=== PATIENT | female | born 1955 | race Caucasian/White ===

== ENCOUNTER → 2017-04-07 | Outpatient (CLI) | payer BC ==
[~2017-04-07] MED LIST: HYDR-2997 PO; LEVO50TA PO; LISI1TAB8 PO; PANT40TA2 PO; RLX60T; SUCR1TAB36 PO; VALS1TAB48
--- NOTE | 2017-04-08 11:39 | Diagnostic Imaging Report ---
EXAMINATION: Bilateral screening mammogram with a Computer Aided Detection (CAD) system. INDICATION: Screening. PERSONAL HISTORY: No current complaints stated on the questionnaire. COMPARISON: 07/19/2013. FINDINGS: The breasts are composed of heterogeneously dense parenchyma which may decrease mammographic sensitivity. There are scattered benign-appearing calcifications. Allowing for technique and positional differences, no suspicious change is seen. IMPRESSION: Dense breasts with no definite change. ACR BI-RADS Category 2: Benign findings. Result letter will be mailed to the patient. Note: At least 10% of breast cancer is not imaged by mammography. Dictated by: Dictated on workstation # [id number]
== END ==
LOC: RAD 07:03
PROVIDERS: ATTEND Family Medicine
DX: Z12.31 Encounter for screening mammogram for malignant neoplasm of breast (principal)
CPT/HCPCS: 77067

== ENCOUNTER 2017-05-04 15:25 | Day surgery (SDC) | payer BC ==
[~2017-05-04] VITALS: Ht 165.1 cm; Wt 71.5 kg
[2017-05-04 15:25] VITALS: BP 143/89
--- NOTE | 2017-05-04 15:40 | Progress Note-Pre Operative ---
Pre-Operative Progress Note H&P Reviewed The H&P was reviewed, patient examined and no changes noted. Date Seen by Provider: May 04, 2017 Time Seen by Provider: 14:55 Date H&P Reviewed: May 04, 2017 Time H&P Reviewed: 15:39 Pre-Operative Diagnosis: Abscess of left axilla DARA ARTEAGA MD May 04, 2017 3:40 pm
[2017-05-04] MEDS ORDERED: CATHETER FLUSH 10 ML SYR IV PRN (16:15)
[2017-05-04] MEDS ORDERED: ceFAZolin 1 GM/NS 50 ML IVPB IV NR ×2 (16:15)
[2017-05-04] MEDS: LACTATED RINGERS 1,000 ML IV SCH ×2 (16:28→17:21)
[2017-05-04] MEDS ORDERED: DOCU100C37 PO (16:52)
[2017-05-04] MEDS ORDERED: PANT40TA3 PO (16:52)
[2017-05-04] MEDS ORDERED: GLUC-219 PO (16:52)
[2017-05-04] MEDS ORDERED: OMEG-109 PO (16:52)
[2017-05-04] MEDS ORDERED: FERR-74 PO (16:52)
[2017-05-04] MEDS ORDERED: CALC-857 PO (16:52)
[2017-05-04] MEDS ORDERED: LEVO50TA6 PO (16:52)
[2017-05-04] MEDS ORDERED: VITA1TAB17 PO (16:52)
[2017-05-04] MEDS ORDERED: MIDAZOLAM 2 MG/2 ML (VERSED) VIAL ONE (17:36)
[2017-05-04] MEDS ORDERED: LACTATED RINGERS 1,000 ML IV ONE (17:36)
[2017-05-04] MEDS ORDERED: SEVOFLURANE (ULTANE) 15 ML INHAL SOLN ONE ×3 (17:36→18:25)
[2017-05-04] MEDS ORDERED: proPOfol 200 MG/20 ML (DIPRIVAN) VIAL IV ONE (17:36)
[2017-05-04] MEDS ORDERED: LIDOCAINE PF 2% 5 ML (XYLOCAINE) VIAL ONE (17:36)
[2017-05-04] MEDS ORDERED: ONDANSETRON 4 MG/2 ML (SDV) Z0FRAN ONE (17:36)
[2017-05-04] MEDS ORDERED: fentaNYL INJECTION 100 MCG/2 ML AMP ONE (17:37)
[2017-05-04] MEDS ORDERED: DEXAMETHASONE PF 10 MG/ML (DECADRON) VIAL ONE (17:58)
--- NOTE | 2017-05-04 18:10 | Operative Report ---
Operative Report Date of Procedure/Surgery May 04, 2017 Surgeon (s) DARA ARTEAGA MD Business Intelligence Engineer (s): Not applicable Post-Operative Diagnosis Same Procedure Performed Incision and drainage of abscessleft axilla Description of Procedure Anesthesia Type: General Estimated blood loss (mL): Minimal Specimen(s) collected/removed pus for culture Description of the Procedure Indication for procedure: This lady presented with an abscess over the left axilla, requiring formal incision and drainage under general anesthetic. Informed consent was obtained after reviewing the procedure in detail Description of the procedure: She was placed supine on the operating room and general anesthesia induced. Left axilla was prepared and draped in the usual sterile manner. A 4 cm elliptical incision was made and the necrotic skin excised. The abscess was drained adequately and hemostasis achieved using cautery. Pus was sent for culture and sensitivity.A nonadherent dressing was applied. She tolerated the procedure well and taken to the recovery room after being extubated. Findings of the Procedure see operative report Allergies and Home Medications Allergies Coded Allergies: No Known Drug Allergies (Verified , 05/04/17) Home Medications Calcium Carbonate/Vitamin D3 1 Each Tab.chew, 1 TAB PO 1800, (Reported) Docusate Sodium 100 Mg Capsule, 100 MG PO DAILY, (Reported) Ferrous Sulfate 325 Mg Tablet, 325 MG PO SuWeFr, (Reported) Glucosamine/D3/Boswellia Heidi 1 Each Tablet, 2 TAB PO 1800, (Reported) Levothyroxine Sodium 50 Mcg Tablet, 50 MCG PO 0200, (Reported) Lisinopril/Hydrochlorothiazide 1 Each Tablet, 0.25 TAB PO Q48H, (Reported) TAKES 1/4 OF A (20/12.5 MG) TABLET Meridian-3 Fatty Acids/Fish Oil 1 Each Capsule, 1,200 MG PO DAILY, (Reported) Pantoprazole Sodium 40 Mg Tablet.dr, 40 MG PO HS, (Reported) Vitamin B Complex 1 Each Tablet, 1 TAB PO DAILY, (Reported) DARA ARTEAGA MD May 04, 2017 6:10 pm
[2017-05-04] MEDS ORDERED: HYDR-3820 PO (18:11)
[2017-05-04] MEDS ORDERED: SULF1TAB35 PO (18:12)
--- NOTE | 2017-05-04 18:13 | Discharge Inst-Simple/Standard ---
Discharge Inst-Standard Discharge Medications New, Converted or Re-Newed RX: RX on Chart Patient Instructions/Follow Up Plan of Care/Instructions/FU: Dressing to be replaced with an ABD pad once a day, starting Thursday. Follow-up with me when she returns from her trip Activity as Tolerated: Yes Discharge Diet: No Restrictions DARA ARTEAGA MD May 04, 2017 6:13 pm
[2017-05-04] MEDS: fentaNYL INJECTION 100 MCG/2 ML AMP IVP PRN ×2 (18:27→18:34)
[2017-05-04] MEDS ORDERED: MEPERIDINE (DEMEROL) INJ 50 MG/ML IVP PRN (18:45)
[2017-05-04] MEDS ORDERED: morphine INJ 10 MG/ML 1ML (SYR OR VIAL) IVP PRN (18:45)
[2017-05-04] MEDS ORDERED: ONDANSETRON 4 MG/2 ML (SDV) Z0FRAN IVP PRN (18:45)
[2017-05-04 19:10] VITALS: BP 143/89
[2017-05-04 19:15] VITALS: BP 146/82
== END 2017-05-04 21:15 | disposition home or self-care (01) ==
LOC: 4TH 15:25 → SDC 15:25 → UNDOADMOB 15:25 → 4TH 15:25 → UNDODISOB 21:15 → SDC 21:15
PROVIDERS: ATTEND Surgery
DX: L02.412 Cutaneous abscess of left axilla (principal); I10 Essential (primary) hypertension; Z79.899 Other long term (current) drug therapy
CPT/HCPCS: 87070; 87075; 87077; 87081; 87186; 87205

== ENCOUNTER 2018-09-13 05:40 | Outpatient (CLI) | payer BC ==
[~2018-09-13] VITALS: Ht 165.1 cm; Wt 74.8 kg
[~2018-09-13 05:40] MED LIST changes: +CALC-857 PO; +DOCU100C37 PO; +FERR325T18 PO; +GLUC-219 PO; +HYDR-3820 PO; +LEVO50TA6 PO; +OMEG-109 PO; +PANT40TA3 PO; +SULF1TAB35 PO; +VITA1TAB17 PO
[2018-09-13] MEDS ORDERED: LOSA50TA7 PO (10:45)
== END 2018-09-13 10:51 | disposition home or self-care (01) ==
LOC: PREOP 05:40
PROVIDERS: ATTEND Specialist
DX: Z01.818 Encounter for other preprocedural examination (principal)

== ENCOUNTER 2018-09-15 07:22 | Day surgery (SDC) | payer BC ==
[~2018-09-15] VITALS: Ht 165.1 cm; Wt 74.8 kg
[~2018-09-15 07:22] MED LIST changes: +LOSA50TA7 PO
[2018-09-15 07:27] VITALS: BP 156/100
[2018-09-15] MEDS ORDERED: MOXIFLOXACIN OPHTH SOLN 5 MG/ML 0.3 ML SYRINGE OP ONE (07:45)
[2018-09-15] MEDS ORDERED: TIMOLOL MALEATE 0.5% 5 ML (TIMOPTIC) BTL OU PRN (07:45)
[2018-09-15] MEDS: TETRACAINE 0.5% OPHTH SOLN 4 ML BTL (SINGLE DOSE ONLY) OU PRN ×4 (07:45→07:54)
[2018-09-15] MEDS ORDERED: POVIDONE (BETADINE) OPHTH SOLN 5% 30 ML OP ONE (07:45)
[2018-09-15] MEDS ORDERED: LIDOCAINE PF 1% 2 ML AMP IR PRN (07:45)
[2018-09-15] MEDS: CYCLOPENTOLATE 1% (CYCLOGYL) 2 ML DROPS OP SCH ×3 (07:48→07:54)
[2018-09-15] MEDS: PHENYLEPHRINE 10% OPHTH (NEO-SYN) 5 ML BTL OU SCH ×3 (07:48→07:54)
[2018-09-15] MEDS ORDERED: MIDAZOLAM 2 MG/2 ML (VERSED) VIAL ONE (08:52)
--- NOTE | 2018-09-15 08:53 | Ophthalmologist Pre-Op Note ---
Pre-Operative Progress Note H&P Reviewed The H&P was reviewed, patient examined and no changes noted. Date H&P Reviewed: Sep 15, 2018 Time H&P Reviewed: 08:53 Pre-Op Dx Cataract, Right Eye DEEPA HILL MD Sep 15, 2018 08:53
[2018-09-15] MEDS ORDERED: acetaZOLAMIDE ER 500 MG CAP (DIAMOX SEQUELS) PO ONE (09:00)
--- NOTE | 2018-09-15 09:18 | Ophthalmology Operative Report ---
Cataract removal/placement IOL PREOPERATIVE DIAGNOSIS: Cataract Right Eye POSTOPERATIVE DIAGNOSIS: Cataract Right Eye PROCEDURE: Cataract removal and placement of posterior chamber implant, right eye SURGEON: Gerardo Hill ANESTHESIA: Topical with sedation COMPLICATIONS: None ESTIMATED BLOOD LOSS: Minimal DESCRIPTION OF PROCEDURE: After proper informed consent was obtained, the patient, a 63 female, was taken to the Operating Room and the right eye was anesthetized with tetracaine. The right eye was then prepped and draped in the usual manner. A wire lid speculum was placed. A paracentesis was made at the left hand position. Preservative free lidocaine was injected into the anterior chamber followed by viscoelastic. A clear corneal incision was made in the temporal position. A capsulorrhexis was preformed and the central nuclear and cortical material were removed. The posterior capsule was polished and Corby [id number] 21.5 IOL was placed into the capsular bag. The residual viscoelastic was aspirated and balanced saline solution was injected into the anterior chamber. Moxifloxacin was injected into the anterior chamber. The wound was checked and found to be water tight. The patient tolerated the procedure well without complications. GERARDO HILL MD Sep 15, 2018 09:18
[2018-09-15 09:25] VITALS: BP 149/83
--- NOTE | 2018-09-15 12:25 | Anesthesia-General Post-Op ---
MAC Patient Condition Mental Status/LOC: Same as Preop Cardiovascular: Satisfactory Nausea/Vomiting: Absent Respiratory: Satisfactory Pain: Controlled Complications: Absent Post Op Complications Complications None Follow Up Care/Instructions Patient Instructions None needed. Anesthesiology Discharge Order Discharge Order Patient is doing well, no complaints, stable vital signs, no apparent adverse anesthesia problems. No complications reported per nursing. MERLIN BOUDREAUX CRNA Sep 15, 2018 12:25
== END 2018-09-15 09:25 | disposition home or self-care (01) ==
LOC: SDC 07:22
PROVIDERS: ATTEND Specialist
DX: H25.11 Age-related nuclear cataract, right eye (principal); I10 Essential (primary) hypertension; E03.9 Hypothyroidism, unspecified; K21.9 Gastro-esophageal reflux disease without esophagitis; Z79.899 Other long term (current) drug therapy

== ENCOUNTER 2018-09-21 05:40 | Outpatient (CLI) | payer BC ==
[~2018-09-21] VITALS: Ht 165.1 cm; Wt 74.8 kg
== END 2018-09-21 12:53 | disposition home or self-care (01) ==
LOC: PREOP 05:40
PROVIDERS: ATTEND Specialist
DX: Z01.818 Encounter for other preprocedural examination (principal)

== ENCOUNTER 2018-09-24 07:28 | Day surgery (SDC) | payer BC ==
[~2018-09-24] VITALS: Ht 165.1 cm; Wt 74.8 kg
--- OUTSIDE RECORDS SUMMARY | 2018-09-24 07:33 | XMS REPORT | Continuity of Care Document ---
Author Author [facility] Organization [facility] Address Unknown Phone Unavailable Allergies Active Description Code Type Severity Reaction Onset Reported/Identified Relationship to Patient Clinical Status Yes No Known Drug Allergies [id number] Drug Allergy Mild N/A 12/11/2015 Yes No Known Drug Allergies [id number] Drug Allergy Unknown N/A 05/04/2017 Medications There is no data. Problems Date Dx Coded Attending Type Code Diagnosis Diagnosed By 11/30/2015 Ot 611.89 11/30/2015 Ot V76.12 11/30/2015 DEEPAK BENTLEY, KIMBERLY R Ot V76.12 11/30/2015 DEEPAK BENTLEY, KIMBERLY R Ot 530.9 11/30/2015 DEEPAK BENTLEY, KIMBERLY R Ot 789.01 11/30/2015 DEEPAK BENTLEY, KIMBERLY R Ot 789.01 11/30/2015 DEEPAK BENTLEY, KIMBERLY R Ot 789.06 11/30/2015 DEEPAK BENTLEY, KIMBERLY R Ot R10.11 12/11/2015 KATHERINE GARCIA DO Ot K21.9 GASTRO-ESOPHAGEAL REFLUX DISEASE WITHOUT 12/11/2015 KATHERINE GARCIA DO Ot K25.9 GASTRIC ULCER, UNSP ACUTE OR CHRONIC, 12/11/2015 KATHERINE GARCIA DO Ot K44.9 DIAPHRAGMATIC HERNIA WITHOUT OBSTRUCTION 12/17/2015 DEEPAK BENTLEY, KIMBERLY R Ot R10.11 12/17/2015 SHIRIN TYSON APRN Ot R10.11 02/14/2016 KATHERINE GARCIA DO Ot Z01.818 ENCOUNTER FOR OTHER PREPROCEDURAL EXAMIN 02/15/2016 KATHERINE GARCIA DO Ot Z01.818 ENCOUNTER FOR OTHER PREPROCEDURAL EXAMIN 02/19/2016 KATHERINE GARCIA DO Ot K21.9 GASTRO-ESOPHAGEAL REFLUX DISEASE WITHOUT 02/19/2016 GARCIA DO, KATHERINE D Ot K44.9 DIAPHRAGMATIC HERNIA WITHOUT OBSTRUCTION 02/19/2016 GARCIA KTAHERINE CAAL D Ot Z87.11 PERSONAL HISTORY OF PEPTIC ULCER DISEASE 02/20/2016 GARCIA KATHERINE CAAL D Ot K21.9 GASTRO-ESOPHAGEAL REFLUX DISEASE WITHOUT 02/20/2016 GARCIA , KATHERINE D Ot K44.9 DIAPHRAGMATIC HERNIA WITHOUT OBSTRUCTION 02/20/2016 GARCIA KATHERINE CAAL D Ot Z87.11 PERSONAL HISTORY OF PEPTIC ULCER DISEASE 02/21/2016 GARCIA KATHERINE CAAL D Ot K21.9 GASTRO-ESOPHAGEAL REFLUX DISEASE WITHOUT 02/21/2016 GARCIA DO, KATHERINE D Ot K44.9 DIAPHRAGMATIC HERNIA WITHOUT OBSTRUCTION 02/21/2016 GARCIA , KATHERINE D Ot Z87.11 PERSONAL HISTORY OF PEPTIC ULCER DISEASE 03/26/2017 KIMBERLY SOTELO MD R Ot V76.12 OTH SCREEN MAMMO-MALIGN NEOPLASM OF GRETCHEN 03/26/2017 KIMBERLY SOTELO MD Ot 530.9 ESOPHAGEAL DISORDER NOS 03/26/2017 KIMBERLY SOTELO MD R Ot 789.01 ABDOMINAL PAIN, RIGHT UPPER QUADRANT 03/26/2017 KIMBERLY SOTELO MD R Ot 789.01 ABDOMINAL PAIN, RIGHT UPPER QUADRANT 03/26/2017 KIMBERLY SOTELO MD R Ot 789.06 ABDOMINAL PAIN, EPIGASTRIC 03/26/2017 KIMBERLY SOTELO MD R Ot R10.11 RIGHT UPPER QUADRANT PAIN 03/26/2017 SHIRIN TYSON APRN Ot R10.11 RIGHT UPPER QUADRANT PAIN 03/26/2017 [place] KATHERINE D Ot R10.11 RIGHT UPPER QUADRANT PAIN 03/26/2017 [place] KATHERINE D Ot R11.2 NAUSEA WITH VOMITING, UNSPECIFIED 03/26/2017 [place] KATHERINE D Ot Z01.818 ENCOUNTER FOR OTHER PREPROCEDURAL EXAMIN 03/30/2017 KIMBERLY SOTELO MD R Ot V76.12 OTH SCREEN MAMMO-MALIGN NEOPLASM OF GRETCHEN 03/30/2017 KIMBERLY SOTELO MD R Ot 530.9 ESOPHAGEAL DISORDER NOS 03/30/2017 KIMBERLY SOTELO MD R Ot 789.01 ABDOMINAL PAIN, RIGHT UPPER QUADRANT 03/30/2017 KIMBERLY SOTELO MD R Ot 789.01 ABDOMINAL PAIN, RIGHT UPPER QUADRANT 03/30/2017 DEEPAK BENTLEY, KIMBERLY R Ot 789.06 ABDOMINAL PAIN, EPIGASTRIC 03/30/2017 DEEPAK BENTLEY, KIMBERLY R Ot R10.11 RIGHT UPPER QUADRANT PAIN 03/30/2017 SHIRIN TYSON PLIER WORKER Ot R10.11 RIGHT UPPER QUADRANT PAIN 03/30/2017 GARCIA DO, KATHERINE D Ot R10.11 RIGHT UPPER QUADRANT PAIN 03/30/2017 GARCIA DO, KATHERINE D Ot R11.2 NAUSEA WITH VOMITING, UNSPECIFIED 03/30/2017 GARCIA DO, KATHERINE D Ot Z01.818 ENCOUNTER FOR OTHER PREPROCEDURAL EXAMIN 04/20/2017 DEEPAK BENTLEY, KIMBERLY R Ot Z12.31 ENCNTR SCREEN MAMMOGRAM FOR MALIGNANT NE 05/04/2017 CHANDLER BENTLEY, DARA M Ot I10 ESSENTIAL (PRIMARY) HYPERTENSION 05/04/2017 CHANDLER BENTLEY, DARA M Ot L02.412 CUTANEOUS ABSCESS OF LEFT AXILLA 05/04/2017 DARA ARTEAGA MD Ot Z79.899 OTHER [facility] (CURRENT) DRUG THERAPY 05/08/2017 DARA ARTEAGA MD M Ot I10 ESSENTIAL (PRIMARY) HYPERTENSION 05/08/2017 CHANDLER BENTLEY, DARA M Ot L02.412 CUTANEOUS ABSCESS OF LEFT AXILLA 05/08/2017 CHANDLER BENTLEY, DARA M Ot 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 09/13/2018 DEEPA HILL MD Ot Z01.818 ENCOUNTER FOR OTHER PREPROCEDURAL EXAMIN 09/21/2018 DEEPA HILL MD Ot E03.9 HYPOTHYROIDISM, UNSPECIFIED 09/21/2018 DEEPA HILL MD Ot H25.11 AGE-RELATED NUCLEAR CATARACT, RIGHT EYE 09/21/2018 DEEPA HILL MD Ot I10 ESSENTIAL (PRIMARY) HYPERTENSION 09/21/2018 DEEPA HILL MD Ot K21.9 GASTRO-ESOPHAGEAL REFLUX DISEASE WITHOUT 09/21/2018 DEEPA HILL MD Ot Z79.899 OTHER [facility] (CURRENT) DRUG THERAPY 09/21/2018 DEEPA HILL MD Ot Z01.818 ENCOUNTER FOR OTHER PREPROCEDURAL EXAMIN 09/22/2018 DEEPA HILL MD Ot Z01.818 ENCOUNTER FOR OTHER PREPROCEDURAL EXAMIN Procedures There is no data. Results Test Result Range Methicillin resistant Staphylococcus aureus (MRSA) screening culture - 16:03 Methicillin resistant Staphylococcus aureus (MRSA) screening culture NEG NRG Bacteria identification in isolate by anaerobe culture - 05/04/17 17:56 Bacteria identification in isolate by anaerobe culture NOANA NRG Gram stain microscopy - 05/04/17 17:56 GRAM STAIN RESULT FEW GRAM POSITIVE COCCI RESEMBLING STAPH NRG Bacteria identification in wound by culture - 05/04/17 17:56 Bacteria identification in wound by culture [id number] NRG FREE TEXT EXTERNAL SENSITIVITY REPORTED 05/05/17 15:45 NRG QUANTITY OF GROWTH Abundant Growth NRG MRSA AGAR MRSA isolated (Screening test for MRSA is positive) NRG CALL POSITIVES (F1 HELP) CALLED TO [facility] 05/05 11:50 NRG Bacterial susceptibility panel - 05/04/17 17:56 Oxacillin susceptibility test by minimum inhibitory concentration > = NRG Gentamicin susceptibility test by minimum inhibitory concentration < = NRG Clindamycin susceptibility test by minimum inhibitory concentration <= NRG Erythromycin susceptibility test by minimum inhibitory concentration <= NRG Trimethoprim/sulfamethoxazole susceptibility test by minimum inhibitoryconcentration <= NRG Vancomycin susceptibility test by minimum inhibitory concentration 1 NRG Levofloxacin susceptibility test by minimum inhibitory concentration 0.5 NRG Rifampin susceptibility test by minimum inhibitory concentration <= NRG Tetracycline susceptibility test by minimum inhibitory concentration <= NRG Encounters ACCT No. Visit Date/Time Discharge Status Pt. Type Provider Facility Loc./Unit Complaint [id number] 09/21/2018 05:40:00 09/21/2018 12:53:00 DIS Outpatient DEEPA HILL MD [facility] PREOP CATARACT LEFT EYE [id number] 09/15/2018 07:22:00 09/15/2018 09:25:00 DIS Outpatient DEEPA HILL MD [facility] SDC CATARACT RIGHT EYE [id number] 09/13/2018 05:40:00 09/13/2018 10:51:00 DIS Outpatient DEEPA HILL MD [facility] PREOP CATARACT RIGHT EYE [id number] 05/04/2017 15:25:00 05/04/2017 21:15:00 DIS Outpatient DARA ARTEAGA MD [facility] SDC I D OF LEFT AXILLA [id number] 04/07/2017 07:03:00 04/07/2017 23:59:59 CLS Outpatient KIMBERLY SOTELO MD [facility] RAD ROUTINE Z12.31 [id number] 02/19/2016 07:30:00 02/19/2016 10:00:00 DIS Outpatient KATHERINE GARCIA DO [facility] SDC REFLEX [id number] 02/14/2016 05:40:00 02/14/2016 09:12:00 DIS Outpatient GARCIA KATHERINE CAAL [facility] PREOP REFLEX [id number] 12/11/2015 13:31:00 12/11/2015 17:00:00 [facility] [id number] 12/06/2015 05:47:00 12/06/2015 23:59:59 CLS Outpatient KATHERINE GARCIA DO D [facility] PREOP RIGHT UPPER QUAD PAIN [id number] 11/30/2015 10:04:00 11/30/2015 23:59:59 CLS Outpatient SHIRIN TYSON APRN [facility] CARD RUQ PAIN [id number] 11/29/2015 11:37:00 11/29/2015 23:59:59 CLS Outpatient KIMBERLY SOTELO MD [facility] RAD PAIN R U Q SEVERE [id number] 05/30/2014 12:01:00 05/30/2014 23:59:59 CLS Outpatient KIMBERLY SOTELO MD [facility] CARD RUQ PAIN [id number] 05/30/2014 06:50:00 05/30/2014 23:59:59 CLS Outpatient KIMBERLY SOTELO MD [facility] RAD ESOPHIGA PAIN, RUQ PAIN [id number] 07/19/2013 08:56:00 07/19/2013 23:59:59 CLS Outpatient KIMBERLY SOTELO MD [facility] RAD ROUTINE [id number] 09/24/2018 07:28:00 ACT Outpatient SERGIO BENTLEY, DEEPA [facility] CATARACT LEFT EYE [id number] 06/10/2010 08:04:00 Document Registration
[2018-09-24 07:35] VITALS: BP 191/99
[2018-09-24] MEDS ORDERED: MOXIFLOXACIN OPHTH SOLN 5 MG/ML 0.3 ML SYRINGE OP ONE (07:45)
[2018-09-24] MEDS ORDERED: POVIDONE (BETADINE) OPHTH SOLN 5% 30 ML OP ONE (07:45)
[2018-09-24] MEDS ORDERED: LIDOCAINE PF 1% 2 ML AMP IR PRN (07:45)
[2018-09-24] MEDS ORDERED: TIMOLOL MALEATE 0.5% 5 ML (TIMOPTIC) BTL OU PRN (07:45)
[2018-09-24] MEDS: TETRACAINE 0.5% OPHTH SOLN 4 ML BTL (SINGLE DOSE ONLY) OU PRN ×4 (07:52→08:04)
[2018-09-24] MEDS: PHENYLEPHRINE 10% OPHTH (NEO-SYN) 5 ML BTL OU SCH ×3 (07:56→08:04)
[2018-09-24] MEDS: CYCLOPENTOLATE 1% (CYCLOGYL) 2 ML DROPS OP SCH ×3 (07:56→08:04)
[2018-09-24] MEDS ORDERED: MIDAZOLAM 2 MG/2 ML (VERSED) VIAL ONE (08:13)
--- NOTE | 2018-09-24 08:33 | Ophthalmologist Pre-Op Note ---
Pre-Operative Progress Note H&P Reviewed The H&P was reviewed, patient examined and no changes noted. Date H&P Reviewed: Sep 24, 2018 Time H&P Reviewed: 08:33 Pre-Op Dx Cataract, Left Eye DEEPA HILL MD Sep 24, 2018 08:33
--- NOTE | 2018-09-24 08:55 | Ophthalmology Operative Report ---
Cataract removal/placement IOL PREOPERATIVE DIAGNOSIS: Cataract Left Eye POSTOPERATIVE DIAGNOSIS: Cataract Left Eye PROCEDURE: Cataract removal and placement of posterior chamber implant, left eye SURGEON: Gerardo Hill ANESTHESIA: Topical with sedation COMPLICATIONS: None ESTIMATED BLOOD LOSS: Minimal DESCRIPTION OF PROCEDURE: After proper informed consent was obtained, the patient, a 63 female, was taken to the Operating Room and the left eye was anesthetized with tetracaine. The left eye was then prepped and draped in the usual manner. A wire lid speculum was placed. A paracentesis was made at the left hand position. Preservative free lidocaine was injected into the anterior chamber followed by viscoelastic. A clear corneal incision was made in the temporal position. A capsulorrhexis was preformed and the central nuclear and cortical material were removed. The posterior capsule was polished and an Corby 21.5 [id number] was placed into the capsular bag. The residual viscoelastic was aspirated and balanced saline solution was injected into the anterior chamber. Moxifloxacin was injected into the anterior chamber. The wound was checked and found to be water tight. The patient tolerated the procedure well without complications. GERARDO HILL MD Sep 24, 2018 08:55
[2018-09-24] MEDS ORDERED: acetaZOLAMIDE ER 500 MG CAP (DIAMOX SEQUELS) PO ONE (09:00)
[2018-09-24 09:05] VITALS: BP 157/67
--- NOTE | 2018-09-24 13:31 | Anesthesia-General Post-Op ---
MAC Patient Condition Mental Status/LOC: Same as Preop Cardiovascular: Satisfactory Nausea/Vomiting: Absent Respiratory: Satisfactory Pain: Controlled Complications: Absent Post Op Complications Complications None Follow Up Care/Instructions Patient Instructions None needed. Anesthesiology Discharge Order Discharge Order Patient is doing well, no complaints, stable vital signs, no apparent adverse anesthesia problems. No complications reported per nursing. MERLIN BOUDREAUX CRNA Sep 24, 2018 13:31
== END 2018-09-24 09:05 | disposition home or self-care (01) ==
LOC: SDC 07:28
PROVIDERS: ATTEND Specialist
DX: H25.12 Age-related nuclear cataract, left eye (principal); I10 Essential (primary) hypertension; E03.9 Hypothyroidism, unspecified; K21.9 Gastro-esophageal reflux disease without esophagitis; Z79.899 Other long term (current) drug therapy

== ENCOUNTER 2019-09-21 06:20 | Outpatient (CLI) | payer BC ==
[~2019-09-21] VITALS: Ht 165 cm; Wt 75.0 kg
[~2019-09-21 06:20] MED LIST changes: +LOSA50TA63 PO; -LOSA50TA7 PO
== END 2019-09-21 11:29 ==
LOC: PREOP 06:20
PROVIDERS: ATTEND Specialist
DX: Z01.818 Encounter for other preprocedural examination (principal)

== ENCOUNTER 2019-09-23 07:37 | Day surgery (SDC) | payer BC, MEDICARE ==
[~2019-09-23] VITALS: Ht 165 cm; Wt 75.0 kg
[2019-09-23 07:40] VITALS: BP 177/84
[2019-09-23] MEDS: TETRACAINE 0.5% OPHTH SOLN 4 ML BTL (SINGLE DOSE ONLY) OU PRN ×2 (07:54→08:11)
[2019-09-23] MEDS: PHENYLEPHRINE 10% OPHTH (NEO-SYN) 5 ML BTL OU PRN ×2 (07:55→08:11)
[2019-09-23] MEDS: TROPICAMIDE 1% OPH SOLN (MYDRIACYL) 15 ML BTL OU PRN ×2 (07:55→08:11)
--- NOTE | 2019-09-23 08:24 | Ophthalmologist Pre-Op Note ---
Pre-Operative Progress Note H&P Reviewed The H&P was reviewed, patient examined and no changes noted. Date H&P Reviewed: Sep 23, 2019 Time H&P Reviewed: 08:24 Pre-Op Dx Secondary Cataract, Bilateral Eyes DEEPA HILL MD Sep 23, 2019 08:24 POS
--- NOTE | 2019-09-23 08:54 | Ophthalmology Operative Report ---
YAG Capsulotomy PREOPERATIVE DIAGNOSIS: Secondary Cataract Bilateral POSTOPERATIVE DIAGNOSIS: Secondary Cataract Bilateral PROCEDURE: YAG Capsulotomy, Bilateral SURGEON: Gerardo Hill ANESTHESIA: Topical anesthesia COMPLICATIONS: None ESTIMATED BLOOD LOSS: Minimal DESCRIPTION OF PROCEDURE: After proper informed consent was obtained, the patient's, a 64 female , received one drop of Tropicamide and one drop of Tetracaine in each eye. The patient was then placed at the YAG laser and using a power of [ 3.5] millijoules and bursts [20 ] right eye and [ 21] left eye were used to fashion a central capsulotomy. The patient tolerated the procedure well without complications. GERARDO HILL MD Sep 23, 2019 08:54 POS
[2019-09-23 08:55] VITALS: BP 177/84
== END 2019-09-23 08:55 | disposition home or self-care (01) ==
LOC: SDC 07:37
PROVIDERS: ATTEND Specialist
DX: H26.493 Other secondary cataract, bilateral (principal); E03.9 Hypothyroidism, unspecified; M19.90 Unspecified osteoarthritis, unspecified site; Z79.899 Other long term (current) drug therapy; Z85.830 Personal history of malignant neoplasm of bone; Z90.710 Acquired absence of both cervix and uterus; Z90.89 Acquired absence of other organs